=== PATIENT | male | born 1990 | race Caucasian/White ===

== ENCOUNTER 2024-10-16 01:41 | Emergency (ER) | payer OTHER ==
[~2024-10-16] VITALS: Ht 165.1 cm; Wt 59.0 kg
[2024-10-16 01:47] VITALS: O2SAT 99
[2024-10-16] MEDS ORDERED: CEFTRIAXONE /D5W 50ML IVPB **ER PYXIS IV ONE (02:24)
[2024-10-16] MEDS ORDERED: KETOROLAC TROMETHAMINE 15 MG INJ ONE (02:25)
[2024-10-16] MEDS ORDERED: DOXYCYCLINE HYCLATE 100 MG INJ IV ONE (02:26)
[2024-10-16] MEDS: KETOROLAC TROMETHAMINE 15 MG INJ IVP ONE (02:29)
[2024-10-16] MEDS: CEFTRIAXONE 1 G in IV DEXTROSE 5% 50 ML IV ONE (02:29)
[2024-10-16] MEDS: MORPHINE SULFATE 4 MG/1 ML DISP.SYRIN IV ONE (02:33)
[2024-10-16] MEDS ORDERED: MORPHINE SULFATE 4 MG/1 ML DISP.SYRIN ONE (02:33)
[2024-10-16] MEDS ORDERED: AMOX-430 PO (02:38)
[2024-10-16] MEDS ORDERED: OXYC-470 PO (02:38)
[2024-10-16] MEDS ORDERED: ACET-2812 PO (02:38)
[2024-10-16] MEDS ORDERED: NAPR-1009 PO (02:38)
[2024-10-16] MEDS ORDERED: DOXY100C5 PO (02:38)
[2024-10-16 02:42] LABS: ALBUMIN 3.1 g/dL (3.4-5.0); BILIRUBIN,TOTAL 0.3 mg/dL (0.2-1.0); CALCIUM 8.7 mg/dL (8.5-10.1); CREATININE 1.1 mg/dL (0.6-1.3); MAGNESIUM 1.9 mg/dL (1.8-2.4); POTASSIUM 3.8 mmol/L (3.5-5.1); TOTAL PROTEIN, SERUM 7.3 g/dL (6.4-8.2)
[2024-10-16 02:44] LABS: C-REACTIVE PROTEIN 4.54 mg/dL (0.00-0.30)
[2024-10-16 02:50] LABS: BASOPHILS # (AUTO) 0.2 K/UL (0.0-0.2); EOSINOPHILS # (AUTO) 0.2 K/uL (0.0-0.7); EOSINOPHILS % (AUTO) 2.9 % (0.0-7.0); HEMOGLOBIN 10.9 g/dL (12.5-16.3); LYMPHOCYTES # (AUTO) 3.9 K/uL (0.8-4.8); LYMPHOCYTES % (AUTO) 49.5 % (20.5-51.5); MEAN CORPUSCULAR HEMOGLOBIN 29.1 uug (23.8-33.4); MEAN CORPUSCULAR HGB CONC 34 g/dL (32.5-36.3); MEAN CORPUSCULAR VOLUME 85.5 fL (73.0-96.2); MONOCYTES % (AUTO) 13.2 % (0.0-11.0); NEUTROPHILS # (AUTO) 2.5 K/uL (1.8-8.9); NEUTROPHILS % (AUTO) 31.4 % (38.5-71.5); PLATELET COUNT (AUTO) 322 K/uL (152-348); RED BLOOD CELL COUNT(AUTO) 3.74 MIL/uL (4.06-5.63); RED CELL DISTRIBUTION WIDTH 14.2 % (12.1-16.2); WHITE BLOOD COUNT (AUTO) 7.9 K/uL (3.6-10.2)
[2024-10-16] MEDS ORDERED: DOXYCYCLINE HYCLATE 100 MG TABLET ONE (03:12)
[2024-10-16] MEDS: DOXYCYCLINE HYCLATE IV 100 MG in IV DEXTROSE 5% 100 ML IV ONE (03:14)
[2024-10-16] MEDS: DOXYCYCLINE HYCLATE 100 MG TABLET PO ONE (03:14)
== END 2024-10-16 03:30 | disposition home or self-care (01) ==
LOC: ER 01:54
DX: L03.113 Cellulitis of right upper limb (principal); L02.511 Cutaneous abscess of right hand; M79.641 Pain in right hand; F17.200 Nicotine dependence, unspecified, uncomplicated; R60.0 Localized edema
CPT/HCPCS: 99285; 96365; 10060; 96375; 80053; 83735; 85025; 86140; 36415; 83605; J0696; J3490 ×2; J1885; J2270; A4606; A4663